=== PATIENT | female | born 1965 | race Caucasian/White ===

== ENCOUNTER 2016-11-03 11:44 | Emergency (ER) | payer BC ==
[2016-11-03 14:40] VITALS: BP 150/71
--- NOTE | 2016-11-03 15:11 | UC ---
Respiratory Complaint HPI - HPI Summary HPI Summary: Wants a flu screen. WAs at another [facility] today, requested one and they refused. Gave her Rx for antibiotic, which she doesn't feel she needs. 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" - History of Current Complaint Chief Complaint: UCRespiratory Stated Complaint: FLU LIKE SXS Time Seen by Provider: 11/03/16 14:33 Hx Obtained From: Patient Hx Last Menstrual Period: 2007 Onset/Duration: Gradual Onset Timing: Constant Severity Initially: Mild Severity Currently: Mild Character: Cough: Nonproductive Associated Signs And Symptoms: Positive: Fever, Chills, URI, Nasal Congestion, Hoarseness, Sinus Discomfort - Risk Factors Pulmonary Embolism Risk Factors: Negative Cardiac Risk Factors: Negative Pseudomonas Risk Factors: Negative Tuberculosis Risk Factors: Negative - Allergies/Home Medications Allergies/Adverse Reactions: Allergies Allergy/AdvReac Type Severity Reaction Status Date / Time Penicillins Allergy Rash Verified 11/03/16 14:40 Sulfamethoxazole Allergy Rash Verified 11/03/16 14:40 w/Trimethoprim [From Bactrim] Home Medications: Home Medications Dextromethorphan-Phenylephrine [Day Time Multi-Symptom Co] 2 cap PO ONCE PRN [History Confirmed 11/03/16] Lorazepam [Ativan] 0.5 mg PO BEDTIME 11/03/16 [History Confirmed 11/03/16] Ustekinumab (IV) [Stelara] 130 mg IV 11/03/16 [History] busPIRone TAB* [Buspar TAB*] 5 mg PO DAILY 11/03/16 [History Confirmed 11/03/16] PMH/Surg Hx/FS Hx/Imm Hx Previously Healthy: Yes Endocrine History Of: Denies: Diabetes, Thyroid Disease Cardiovascular History Of: Denies: Cardiac Disorders, Hypertension Respiratory History Of: Denies: COPD, Asthma Cancer History Of: Denies: Breast Cancer - Surgical History Surgical History: Yes Surgery Procedure, Year, and Place: 2007 hysterectomy. ovaries; 1990 cholecystectomy - Family History Known Family History: Positive: Hypertension - Social History Occupation: Employed Full-time - teacher Lives: With Family Alcohol Use: None Substance Use Type: None Substance Use Comment - Amount & Last Used: 32 oz. daily Smoking Status (MU): Never Smoked Tobacco - Immunization History Most Recent Influenza Vaccination: 08/23 Review of Systems Constitutional: Negative Skin: Negative Eyes: Negative ENT: Sore Throat - mild, Nasal Discharge Respiratory: Cough Cardiovascular: Negative Gastrointestinal: Negative Genitourinary: Negative Motor: Negative Neurovascular: Negative Musculoskeletal: Negative Neurological: Negative Psychological: Negative All Other Systems Reviewed And Are Negative: Yes Physical Exam Triage Information Reviewed: Yes Appearance: Well-Appearing, No Pain Distress, Well-Nourished Vital Signs: Initial Vital Signs Temp 98.6 F 11/03/16 14:34 Pulse 88 11/03/16 14:34 Resp 16 11/03/16 14:34 BP 150/71 11/03/16 14:34 Pulse Ox 100 11/03/16 14:34 Vital Signs Reviewed: Yes Eye Exam: Normal Eyes: Positive: Conjunctiva Clear ENT: Positive: Normal ENT inspection, Hearing grossly normal, Pharynx normal, Nasal congestion, Nasal drainage, TMs normal. Negative: Tonsillar swelling, Tonsillar exudate, Trismus, Muffled/hoarse voice Cardiovascular Exam: Normal Musculoskeletal Exam: Normal Neurological Exam: Normal Psychological Exam: Normal Skin Exam: Normal UC Diagnostic Evaluation - Laboratory O2 Sat by Pulse Oximetry: 100 Diagnostic Studies Comment: flu neg Respiratory Course/Dx - Differential Dx/Diagnosis Differential Diagnosis/HQI/PQRI: Influenza, Lower Resp Infection, Sinusitis Provider Diagnoses: URI Discharge - Discharge Plan Condition: Stable Disposition: HOME Prescriptions: Hydrocodone Polistirex-Chlorph [Tussionex Pennkinetic Ext 10-8 mg/5Ml] 1 teasp PO BID #60 ml MDD 10cc Patient Education Materials: Upper Respiratory Infection (ED) Referrals: Mandeep Griffiths MD [Primary Care Provider] -
== END 2016-11-03 15:27 | disposition home or self-care (01) ==
LOC: UCCORT 11:44
DX: J06.9 Acute upper respiratory infection, unspecified (principal); Z88.0 Allergy status to penicillin; Z88.1 Allergy status to other antibiotic agents
CPT/HCPCS: 87502; 99212; G0463

== ENCOUNTER 2016-11-06 09:15 | Emergency (ER) | payer BC ==
[2016-11-06 09:38] VITALS: BP 127/66
--- NOTE | 2016-11-06 11:05 | UC ---
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 NO LOSS OF CONTROL OF BLADDER OR BOWELS, ABLE TO BEAR WEIGHT. NO FEVER. NO URINARY DISCOMFORT - History of Current Complaint Chief Complaint: UCBackPain Stated Complaint: BACK PAIN Time Seen by Provider: 11/06/16 10:07 Hx Obtained From: Patient Hx Last Menstrual Period: 2007 Onset/Duration: Sudden Onset, Lasting Days, Still Present Timing: Intermittent Severity Initially: Moderate Severity Currently: Moderate Pain Intensity: 6 Pain Scale Used: 0-10 Numeric Character: Aching, Spasmodic Aggravating: Movement, Lifting, Bending Alleviating: Rest, Position Associated Signs And Symptoms: Positive: Pain with Weight Bearing. Negative: Swelling, Redness, Bruising, Fever, Weakness, Numbness, Tingling, Abdominal Pain , Flank Pain, Bladder Incontinence, Bowel Incontinence Related History: Previous Back Injury - MUSCLE SPASM - Risk Factors AAA Risk Factors: Negative TAD Risk Factors: Negative Cauda Equina Risk Factors: Negative Epidural Abscess Risk Factors: Negative - Allergies/Home Medications Allergies/Adverse Reactions: Allergies Allergy/AdvReac Type Severity Reaction Status Date / Time Penicillins Allergy Rash Verified 11/06/16 09:31 Sulfamethoxazole Allergy Rash Verified 11/06/16 09:31 w/Trimethoprim [From Bactrim] PMH/Surg Hx/FS Hx/Imm Hx Previously Healthy: Yes Endocrine History Of: Denies: Diabetes, Thyroid Disease Cardiovascular History Of: Denies: Cardiac Disorders, Hypertension Respiratory History Of: Denies: COPD, Asthma Cancer History Of: Denies: Breast Cancer - Surgical History Surgical History: Yes Surgery Procedure, Year, and Place: 2007 hysterectomy. ovaries; 1990 cholecystectomy - Family History Known Family History: Positive: Hypertension - Social History Occupation: Employed Full-time Lives: With Family Alcohol Use: None Substance Use Type: None Substance Use Comment - Amount & Last Used: 32 oz. daily Smoking Status (MU): Never Smoked Tobacco - Immunization History Most Recent Influenza Vaccination: 08/23 Review of Systems Constitutional: Negative Skin: Negative Eyes: Negative ENT: Negative Respiratory: Negative Cardiovascular: Negative Gastrointestinal: Negative Genitourinary: Negative Motor: Negative Neurovascular: Negative Musculoskeletal: Arthralgia, Myalgia Neurological: Negative Psychological: Negative All Other Systems Reviewed And Are Negative: Yes Physical Exam Triage Information Reviewed: Yes Appearance: Well-Appearing, Well-Nourished, Pain Distress - MILD, Thin Vital Signs: Initial Vital Signs Temp 98.9 F 11/06/16 09:33 Pulse 82 11/06/16 09:33 Resp 16 11/06/16 09:33 BP 127/66 11/06/16 09:33 Pulse Ox 100 11/06/16 09:33 Vital Signs Reviewed: Yes Eye Exam: Normal Eyes: Positive: Conjunctiva Clear ENT Exam: Normal ENT: Positive: Normal ENT inspection, Hearing grossly normal, TMs normal Dental Exam: Normal Neck exam: Normal Neck: Positive: Supple, Nontender Respiratory Exam: Normal Respiratory: Positive: Chest non-tender, Lungs clear, Normal breath sounds, No respiratory distress, No accessory muscle use Cardiovascular Exam: Normal Cardiovascular: Positive: RRR, No Murmur, Pulses Normal Abdominal Exam: Normal Abdomen Description: Positive: Nontender, No Organomegaly Musculoskeletal: Positive: Strength Intact, ROM Intact, No Edema, Other: - POSTIVE BILATERAL STRAIGHT LEG RAISE 15 DEGREES Neurological Exam: Normal Psychological Exam: Normal Psychological: Positive: Normal Response To Family Skin Exam: Normal Back Pain Course/Dx - Differential Dx/Diagnosis Differential Diagnosis/HQI/PQRI: Strain, Sprain Provider Diagnoses: LOW BACK STRAIN/SCIATICA Discharge - Discharge Plan Condition: Stable Disposition: HOME Prescriptions: Cyclobenzaprine TAB* [Flexeril TAB*] 10 mg PO TID #15 tab Naproxen [Naproxen 500 MG TABS] 500 mg PO BID #10 tab Patient Education Materials: Acute Low Back Pain (ED), Muscle Spasm (ED) Forms: *Work Release Referrals: Mandeep Griffiths MD [Primary Care Provider] - Additional Instructions: PHYSICAL THERAPY REFERRAL: You have been prescribed physical therapy. Treatments may include stretching, exercise, application of heat or cold, and other modalities. After an injury, PT can reduce swelling and pain. In recovery, PT is used to restore mobility and strength. Your specific treatment goals are: Reduction of Swelling (EGS, US, ice as needed) __x___ Pain Reduction (EGS, US, ice as needed) ____x_ TENS Pack Fitting and Instruction Wound Hydrotherapy ____x_ Preservation of Mobility ___x__ Restorationism of Mobility ___x__ Strength Restorationism ___x__ Work or Sports Hardening This instruction sheet also serves as your PHYSICAL THERAPY REFERRAL! Please take it with you to the therapist, so he/she will be aware of your diagnosis and treatment plan. You may see the physical therapist of your choice for these treatments, but may wish to check with your insurance to be sure the provider you select is covered. It's important to see the doctor to whom you have been referred for follow up.
== END 2016-11-06 10:40 | disposition home or self-care (01) ==
LOC: UCCORT 09:15
DX: S39.012A Strain of muscle, fascia and tendon of lower back, initial encounter (principal); X50.1XXA Overexertion from prolonged static or awkward postures, initial encounter; Y93.E2 Activity, laundry; Y92.9 Unspecified place or not applicable; M54.40 Lumbago with sciatica, unspecified side; Z88.0 Allergy status to penicillin; Z88.2 Allergy status to sulfonamides
CPT/HCPCS: 99212; G0463

== ENCOUNTER 2017-07-21 09:20 | Emergency (ER) | payer BC ==
[2017-07-21 10:19] VITALS: BP 116/60
--- NOTE | 2017-07-21 10:35 | UC ---
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 Also c/o redness on chin- thinks it could be from pimple- denies irritating/popping pimple, but redness seems to be spreading. Tried applying some lotion to rash on chest w/ no relief. Hx of psoriasis, but denies this feeling like a flare up. Denies any new changes in lotion/detergent or diet. Worried that rash could be shingles, but visiting sick aunt in couple days. " She is visiting her aunt vika at a green party who has cancer adn wants to be sure this is not infectious or contagious. o/w she would have waited to see her derm loan few days. +itchy, not painful, no discharge. - History of Current Complaint Chief Complaint: UCSkin Time Seen by Provider: 07/21/17 10:32 Stated Complaint: SKIN COMPLAINT Hx Last Menstrual Period: 2007 - Allergy/Home Medications Allergies/Adverse Reactions: Allergies Allergy/AdvReac Type Severity Reaction Status Date / Time Penicillins Allergy Rash Verified 07/21/17 10:11 Sulfamethoxazole Allergy Rash Verified 07/21/17 10:11 w/Trimethoprim [From Bactrim] Home Medications: Home Medications Zolpidem TAB* [Ambien*] 5 mg BEDTIME 07/21/17 [History Confirmed 07/21/17] Review of Systems Constitutional: Negative Skin: Rash Eyes: Negative ENT: Negative Respiratory: Negative Cardiovascular: Negative Gastrointestinal: Negative Genitourinary: Negative Motor: Negative Neurovascular: Negative Musculoskeletal: Negative Neurological: Negative Psychological: Negative Is Patient Immunocompromised?: Yes - on psoriasis immunomodulator All Other Systems Reviewed And Are Negative: Yes PMH/Surg Hx/FS Hx/Imm Hx Previously Healthy: Yes - Surgical History Surgical History: Yes Surgery Procedure, Year, and Place: 2007 hysterectomy. ovaries; 1990 cholecystectomy - Family History Known Family History: Positive: Hypertension - Social History Alcohol Use: None Substance Use Type: None Substance Use Comment - Amount & Last Used: 32 oz. daily Smoking Status (MU): Never Smoked Tobacco - Immunization History Most Recent Influenza Vaccination: not yet 2017 Physical Exam Triage Information Reviewed: Yes Appearance: Well-Appearing, No Pain Distress, Well-Nourished - here with , both very pleasant Vital Signs: Initial Vital Signs Temp 98.3 F 07/21/17 10:12 Pulse 83 07/21/17 10:12 Resp 16 07/21/17 10:12 BP 116/60 07/21/17 10:12 Pulse Ox 100 07/21/17 10:12 Vital Signs Reviewed: Yes Eye Exam: Normal ENT Exam: Normal Dental Exam: Normal Neck exam: Normal Neck: Positive: Supple, Nontender, No Lymphadenopathy Respiratory: Positive: Lungs clear, Normal breath sounds, No respiratory distress Cardiovascular Exam: Normal Cardiovascular: Positive: RRR, No Murmur Musculoskeletal Exam: Normal Neurological Exam: Normal Psychological Exam: Normal Skin: Positive: rashes - mid upper chest with 2-3 mm round non-blanching erythematous lesion. drying up. no d/c, no streaks, no erythema. very faint minimal vague erythema on lower part of neck. chin with a 3-4 flesh colored slightly elevated sub-cutaneous lesion Course/Dx - Course Course Of Treatment: reassured that this is not c/w shingles or infectious/ contagious etiology. topical rx steroid ointment prescribed. they are very agreeable with this plan. - Differential Diagnoses - Skin Complaint Differential Diagnoses: Impetigo, Urticaria - Diagnoses Provider Diagnoses: dermatitis. Discharge - Discharge Plan Condition: Stable Disposition: HOME Prescriptions: Hydrocortisone Valerate [Westcort] 0.2 % TOPICAL BID PRN #30 oin PRN Reason: Itching Patient Education Materials: Dermatitis (ED) Referrals: Nathalie Teague NP [Primary Care Provider] - Additional Instructions: Follow up with your physician intensivist if symptoms worsen or persist.
== END 2017-07-21 11:07 | disposition home or self-care (01) ==
LOC: UCCORT 09:20
DX: L01.00 Impetigo, unspecified (principal); L50.9 Urticaria, unspecified
CPT/HCPCS: 99212; G0463

== ENCOUNTER 2018-09-28 18:04 | Emergency (ER) | payer BC ==
[2018-09-28 19:45] VITALS: BP 126/61
--- NOTE | 2018-09-28 20:06 | UC ---
Dental HPI - HPI Summary HPI Summary: C/O swelling, tender area at the underside of the left anterior lower jaw. No fevers. Pain with eating. - History of Current Complaint Chief Complaint: UCDentalProblem Stated Complaint: DENTAL CONCERN Time Seen by Provider: 09/28/18 19:56 Hx Obtained From: Patient Hx Last Menstrual Period: 2007 ?: No Onset/Duration: Sudden Onset, Lasting Days - 1, Worse Since - onset Severity: Severe Pain Intensity: 8 Aggravating Factor(s): Chewing Alleviating Factor(s): Nothing - Allergies/Home Medications Allergies/Adverse Reactions: Allergies Allergy/AdvReac Type Severity Reaction Status Date / Time Penicillins Allergy Rash Verified 09/28/18 19:34 sulfamethoxazole Allergy Rash Verified 09/28/18 19:34 [From Bactrim] trimethoprim [From Bactrim] Allergy Rash Verified 09/28/18 19:34 Home Medications: Home Medications LORazepam TAB(*) [Ativan 0.5 MG TAB (*)] 1 tab QPM 09/28/18 [History Confirmed 09/28/18] Sertraline* [Zoloft*] 100 mg BEDTIME 09/28/18 [History Confirmed 09/28/18] PMH/Surg Hx/FS Hx/Imm Hx Previously Healthy: Yes - Surgical History Surgical History: Yes Surgery Procedure, Year, and Place: 2007 hysterectomy. ovaries; 1990 cholecystectomy - Family History Known Family History: Positive: Cardiac Disease, Hypertension, Diabetes - Social History Occupation: Employed Full-time Lives: With Family Alcohol Use: None Substance Use Type: None Substance Use Comment - Amount & Last Used: 32 oz. daily Smoking Status (MU): Never Smoked Tobacco - Immunization History Most Recent Influenza Vaccination: not yet 2017 Most Recent Tetanus Shot: UTD Review of Systems All Other Systems Reviewed And Are Negative: Yes ENT: Positive: Dental Pain Neurological: Positive: Headache - yesterday Is Patient Immunocompromised?: No Physical Exam Triage Information Reviewed: Yes Appearance: Well-Nourished, Ill-Appearing, Pain Distress Vital Signs: Initial Vital Signs Temp 97.8 F 09/28/18 19:37 Pulse 78 09/28/18 19:37 Resp 16 09/28/18 19:37 BP 126/61 09/28/18 19:37 Pulse Ox 100 09/28/18 19:37 Vital Signs Reviewed: Yes Eyes: Positive: Conjunctiva Clear ENT: Positive: Pharynx normal, TMs normal, Other - erythematous swollen area over the left lower/ anterior jaw with significant tenderness. Images Head: 1 - Swollen, red, tender Dental Complaint Course/Dx - Differential Dx/Diagnosis Differential Diagnosis/Dx: Dental Abscess, Fractured Tooth, Peritonsillar Abcess Provider Diagnosis: Dental abscess Discharge - Sign-Out/Discharge Documenting (check all that apply): Patient Departure All imaging exams completed and their final reports reviewed: No Studies - Discharge Plan Condition: Stable Disposition: HOME Prescriptions: Clindamycin Cap(NF) [Clindamycin Cap 300 mg Cap(NF)] 300 mg PO Q6H #28 cap Patient Education Materials: Dental Abscess (ED), Clindamycin (By mouth) Referrals: Nilton Crowe MD [Primary Care Provider] - Additional Instructions: Use hot packs over the area. Return to change antibiotics if not improving in 24 hours. - Billing Disposition and Condition Condition: STABLE Disposition: Home
== END 2018-09-28 20:20 | disposition home or self-care (01) ==
LOC: UCCORT 18:04
DX: K04.7 Periapical abscess without sinus (principal); Z88.0 Allergy status to penicillin; Z88.1 Allergy status to other antibiotic agents
CPT/HCPCS: 99212; G0463

== ENCOUNTER 2018-11-09 09:11 | Emergency (ER) | payer BC ==
[2018-11-09 10:03] VITALS: BP 115/61
[2018-11-09 10:34] LABS: Influenza A Molecular NEGATIVE (Negative); Influenza B Molecular NEGATIVE (Negative)
--- NOTE | 2018-11-09 10:44 | UC ---
FLU HPI - HPI Summary HPI Summary: Pt c/o nasal congestion chills body aches sinus pressure and pain. Pt is concerned about flu. - History of Current Complaint Chief Complaint: UCRespiratory Stated Complaint: COUGH,RUNNY NOSE,CHILLS Time Seen by Provider: 11/09/18 10:17 Hx Obtained From: Patient Hx Last Menstrual Period: 2007 ?: No Onset/Duration: Sudden Onset, Lasting Days, Still Present, Worse Since - onset Severity Currently: Mild Severity Initially: Moderate Pain Intensity: 0 Associated Signs & Symptoms: Positive: Fever, Myalgia, Nasal Congestion, Headache Related Hx: Possible Flu/Infectious Exposure - Risk Factors Influenza Risk Factors: Negative - Allergy/Home Medications Allergies/Adverse Reactions: Allergies Allergy/AdvReac Type Severity Reaction Status Date / Time Penicillins Allergy Rash Verified 11/09/18 10:04 sulfamethoxazole Allergy Rash Verified 11/09/18 10:04 [From Bactrim] trimethoprim [From Bactrim] Allergy Rash Verified 11/09/18 10:04 Home Medications: Home Medications Melatonin/Pyridoxine HCl (B6) [Melatonin 5 mg Tablet] 1 tab PO BEDTIME 11/09/18 [History Confirmed 11/09/18] PMH/Surg Hx/FS Hx/Imm Hx Previously Healthy: Yes Respiratory History: Asthma - Surgical History Surgical History: Yes Surgery Procedure, Year, and Place: 2007 hysterectomy. ovaries; 1990 cholecystectomy - Family History Known Family History: Positive: Cardiac Disease, Hypertension, Diabetes - Social History Occupation: Employed Full-time Lives: With Family Alcohol Use: None Substance Use Type: None Substance Use Comment - Amount & Last Used: 32 oz. daily Smoking Status (MU): Never Smoked Tobacco Have You Smoked in the Last Year: No - Immunization History Most Recent Influenza Vaccination: not yet 2017 Most Recent Tetanus Shot: UTD Review of Systems All Other Systems Reviewed And Are Negative: Yes Constitutional: Positive: Chills, Fatigue Skin: Positive: Negative Eyes: Positive: Negative ENT: Positive: Sore Throat, Sinus Congestion, Sinus Pain/Tenderness Respiratory: Positive: Cough Cardiovascular: Positive: Negative Gastrointestinal: Positive: Negative Genitourinary: Positive: Negative Motor: Positive: Negative Neurovascular: Positive: Negative Musculoskeletal: Positive: Myalgia Neurological: Positive: Headache Psychological: Positive: Negative Is Patient Immunocompromised?: No Physical Exam Triage Information Reviewed: Yes Appearance: Ill-Appearing Vital Signs: Initial Vital Signs Temp 97.4 F 11/09/18 09:58 Pulse 82 11/09/18 09:58 Resp 15 11/09/18 09:58 BP 115/61 11/09/18 09:58 Pulse Ox 100 11/09/18 09:58 Vital Signs Reviewed: Yes Eye Exam: Normal ENT: Positive: Nasal congestion, Sinus tenderness Dental Exam: Normal Neck exam: Normal Respiratory Exam: Normal Cardiovascular Exam: Normal Musculoskeletal Exam: Normal Neurological Exam: Normal Psychological Exam: Normal Skin Exam: Normal Flu Course/Dx - Course Course Of Treatment: rapid flu: negative - Differential Dx/Diagnosis Differential Diagnosis/HQI/PQRI: Influenza, Upper Respiratory Infection Provider Diagnosis: Sinusitis Discharge - Sign-Out/Discharge Documenting (check all that apply): Patient Departure All imaging exams completed and their final reports reviewed: No Studies - Discharge Plan Condition: Stable Disposition: HOME Prescriptions: Azithromycin TAB* [Zithromax TAB (Z-LISA) 250 mg #6 tabs] 2 tab PO .TODAY, THEN 1 DAILY #1 lisa Patient Education Materials: Sinusitis (ED) Referrals: Nilton Crowe MD [Primary Care Provider] - If Needed - Billing Disposition and Condition Condition: STABLE Disposition: Home - Attestation Statements Provider Attestation: I was available for consult. This patient was seen by the LYNDSEY. The patient was not presented to, seen by, or examined by me. EK
== END 2018-11-09 10:49 | disposition home or self-care (01) ==
LOC: UCCORT 09:11
DX: J32.9 Chronic sinusitis, unspecified (principal); J45.909 Unspecified asthma, uncomplicated; M79.10 Myalgia, unspecified site; Z88.1 Allergy status to other antibiotic agents; Z88.2 Allergy status to sulfonamides
CPT/HCPCS: 99212; G0463

== ENCOUNTER 2019-02-02 13:02 | Emergency (ER) | payer BC ==
[2019-02-02 14:39] VITALS: BP 135/60
--- NOTE | 2019-02-02 14:46 | UC ---
Skin Complaint HPI - HPI Summary HPI Summary: C/O pain and swelling with bruising at left antecubital blood draw site from yesterday. - History of Current Complaint Chief Complaint: UCSkin Stated Complaint: LEFT ARM SKIN CONCERN Hx Obtained From: Patient Hx Last Menstrual Period: 2007 ?: No Onset/Duration: Sudden Onset - last night with swelling, Worse Since - today with area being hard and more painful. Skin Exposure Onset/Duration: Days Ago - 1 Timing: Constant Onset Severity: Mild Current Severity: Mild Pain Intensity: 3 Location: Discrete - left antecubital fossa Character: Swelling, Painful Aggravating Factor(s): Touch, Other - elbow extention Alleviating Factor(s): Nothing Associated Signs & Symptoms: Positive: Bruising, Tenderness. Negative: Fever, Chills, Chest Pain, Lightheadedness, Syncope Related History: Trauma - blood draw. - Allergy/Home Medications Allergies/Adverse Reactions: Allergies Allergy/AdvReac Type Severity Reaction Status Date / Time Penicillins Allergy Rash Verified 02/02/19 14:32 sulfamethoxazole Allergy Rash Verified 02/02/19 14:32 [From Bactrim] trimethoprim [From Bactrim] Allergy Rash Verified 02/02/19 14:32 PMH/Surg Hx/FS Hx/Imm Hx - Additional Past Medical History Additional PMH: Psoriasis Other Cardiovascular History: Anemia - Surgical History Surgical History: Yes Surgery Procedure, Year, and Place: 2007 hysterectomy. ovaries; 1990 cholecystectomy - Family History Known Family History: Positive: Cardiac Disease, Hypertension, Diabetes - Social History Occupation: Employed Full-time Lives: With Family Alcohol Use: None Substance Use Type: None Substance Use Comment - Amount & Last Used: 32 oz. daily Smoking Status (MU): Never Smoked Tobacco Have You Smoked in the Last Year: No - Immunization History Most Recent Influenza Vaccination: not yet 2017 Most Recent Tetanus Shot: UTD Review of Systems All Other Systems Reviewed And Are Negative: Yes Skin: Positive: Bruising Is Patient Immunocompromised?: No Physical Exam Triage Information Reviewed: Yes Appearance: Well-Appearing, No Pain Distress, Well-Nourished Vital Signs: Initial Vital Signs Temp 97.8 F 02/02/19 14:35 Pulse 76 02/02/19 14:35 Resp 16 02/02/19 14:35 BP 135/60 02/02/19 14:35 Pulse Ox 100 02/02/19 14:35 Vital Signs Reviewed: Yes Eyes: Positive: Conjunctiva Clear Neck exam: Normal Respiratory Exam: Normal Cardiovascular Exam: Normal Musculoskeletal Exam: Normal Neurological Exam: Normal Psychological Exam: Normal Skin: Positive: Other - Tender thrombosed left antecubital vein with bruising Course/Dx - Differential Diagnoses - Skin Complaint Differential Diagnoses: Erythema Nodosum, Lymphadenitis, Lymphangitis - Diagnoses Provider Diagnosis: Superficial thrombophlebitis Discharge - Sign-Out/Discharge Documenting (check all that apply): Patient Departure All imaging exams completed and their final reports reviewed: No Studies - Discharge Plan Condition: Stable Disposition: HOME Patient Education Materials: Superficial Thrombophlebitis (ED) Referrals: Nilton Crowe MD [Primary Care Provider] - - Billing Disposition and Condition Condition: STABLE Disposition: Home
== END 2019-02-02 15:07 | disposition home or self-care (01) ==
LOC: UCCORT 13:02
DX: T81.72XA Complication of vein following a procedure, not elsewhere classified, initial encounter (principal); I80.8 Phlebitis and thrombophlebitis of other sites; Y84.8 Other medical procedures as the cause of abnormal reaction of the patient, or of later complication, without mention of misadventure at the time of the procedure; Y92.9 Unspecified place or not applicable; Z88.0 Allergy status to penicillin; Z88.1 Allergy status to other antibiotic agents
CPT/HCPCS: 99211; G0463

== ENCOUNTER 2019-11-10 09:29 | Emergency (ER) | payer BC ==
[2019-11-10 11:43] VITALS: BP 135/62
[2019-11-10 12:02] LABS: Influenza A Molecular Negative (Negative); Influenza B Molecular Negative (Negative)
--- NOTE | 2019-11-10 12:09 | UC ---
Throat Pain/Nasal Laurent HPI - HPI Summary HPI Summary: Pt presents with c/o nasal congestion, ST, body aches, X 3 days. - History of Current Complaint Chief Complaint: UCRespiratory Stated Complaint: EARS COUGH CONGESTION Time Seen by Provider: 11/10/19 11:38 Hx Obtained From: Patient Hx Last Menstrual Period: 2007 ?: No Onset/Duration: Sudden Onset, Lasting Days, Still Present Severity: Mild Pain Intensity: 0 Cough: Nonproductive Associated Signs & Symptoms: Positive: Sinus Discomfort - Epiglottits Risk Factors Epiglottis Risk Factors: Sudden Onset - Allergies/Home Medications Allergies/Adverse Reactions: Allergies Allergy/AdvReac Type Severity Reaction Status Date / Time Penicillins Allergy Rash Verified 11/10/19 11:38 sulfamethoxazole Allergy Rash Verified 11/10/19 11:38 [From Bactrim] trimethoprim [From Bactrim] Allergy Rash Verified 11/10/19 11:38 Home Medications: Home Medications Gabapentin CAP(*) [Neurontin 100 mg CAP(*)] 100 mg PO DAILY 11/10/19 [History Confirmed 11/10/19] Guaifen/Phenyleph/Acetaminophn [Mucinex Sinus-Max Severe Cplt] 1 tab PO ONCE 12/25 [History Confirmed 11/10/19] Meloxicam [Qmiiz Odt] 7.5 mg PO BID 11/10/19 [History Confirmed 11/10/19] busPIRone TAB* [Buspar TAB*] 10 mg PO DAILY 11/10/19 [History Confirmed 11/10/19 ] PMH/Surg Hx/FS Hx/Imm Hx Previously Healthy: Yes - Surgical History Surgical History: Yes Surgery Procedure, Year, and Place: 2007 hysterectomy. ovaries; 1990 cholecystectomy - Family History Known Family History: Positive: Cardiac Disease, Hypertension, Diabetes - Social History Occupation: Employed Full-time Lives: With Family Alcohol Use: None Substance Use Type: None Substance Use Comment - Amount & Last Used: 32 oz. daily Smoking Status (MU): Never Smoked Tobacco Have You Smoked in the Last Year: No - Immunization History Most Recent Influenza Vaccination: not yet 2017 Most Recent Tetanus Shot: UTD Vaccination Up to Date: Yes Review of Systems All Other Systems Reviewed And Are Negative: Yes Constitutional: Positive: Fever, Chills, Fatigue Skin: Positive: Negative Eyes: Positive: Negative ENT: Positive: Sinus Congestion, Sinus Pain/Tenderness Respiratory: Positive: Cough Cardiovascular: Positive: Negative Gastrointestinal: Positive: Negative Genitourinary: Positive: Negative Motor: Positive: Negative Neurovascular: Positive: Negative Musculoskeletal: Positive: Myalgia Neurological: Positive: Headache Psychological: Positive: Negative Is Patient Immunocompromised?: No Physical Exam Triage Information Reviewed: Yes Appearance: Ill-Appearing Vital Signs: Initial Vital Signs Temp 98.4 F 11/10/19 11:36 Pulse 81 11/10/19 11:36 Resp 15 11/10/19 11:36 BP 135/62 11/10/19 11:36 Pulse Ox 100 11/10/19 11:36 Vital Signs Reviewed: Yes Eye Exam: Normal ENT: Positive: Nasal congestion, Sinus tenderness Dental Exam: Normal Neck exam: Normal Respiratory Exam: Normal Cardiovascular Exam: Normal Musculoskeletal Exam: Normal Neurological Exam: Normal Psychological Exam: Normal Skin Exam: Normal Throat Pain/Nasal Course/Dx - Differential Dx/Diagnosis Differential Diagnosis/HQI/PQRI: Influenza, Sinusitis, URI Provider Diagnosis: Sinusitis Discharge ED - Sign-Out/Discharge Documenting (check all that apply): Patient Departure All imaging exams completed and their final reports reviewed: No Studies - Discharge Plan Condition: Stable Disposition: HOME Prescriptions: Azithromycin TAB* [Zithromax TAB (Z-LISA) 250 mg #6 tabs] 2 tab PO .TODAY, THEN 1 DAILY #1 lisa Patient Education Materials: Sinusitis (ED) Forms: *Work Release Referrals: Nilton Crowe MD [Primary Care Provider] - If Needed - Billing Disposition and Condition Condition: STABLE Disposition: Home
== END 2019-11-10 12:28 | disposition home or self-care (01) ==
LOC: UCCORT 09:29
DX: J32.9 Chronic sinusitis, unspecified (principal); M79.10 Myalgia, unspecified site; J02.9 Acute pharyngitis, unspecified; Z88.0 Allergy status to penicillin; Z88.2 Allergy status to sulfonamides
CPT/HCPCS: 99212; G0463